=== PATIENT | female | born 1960 | race Caucasian/White ===

== ENCOUNTER 2018-10-07 22:00 | Inpatient (IN) | payer OTHER ==
[~2018-10-07] VITALS: Ht 175.3 cm; Wt 145.1 kg
[2018-10-07] MEDS ORDERED: LIDOCAINE VISC 2% SOLN 15 ML UDC ONE (22:24)
[2018-10-07] MEDS ORDERED: BELLADONNA ALK/PHENOBARBITAL 5 ML UDC ONE (22:25)
[2018-10-07] MEDS ORDERED: DICYCLOMINE HCL 20 MG/2 ML VIAL IM ONE ×2 (22:25→22:30)
[2018-10-07] MEDS ORDERED: DONNATAL/LIDOCAINE/MAALOX 30 ML SUSP PO ONE (22:30)
[2018-10-07] MEDS ORDERED: SODIUM CHLORIDE 0.9% 1000ML 1,000 ML ONE (23:05)
--- NOTE | 2018-10-07 23:46 | Diagnostic Imaging Report ---
EXAM: CT Abdomen and Pelvis WITHOUT contrast INDICATION: Epigastric pain, nausea, and diarrhea ^[id number] ^[id number] COMPARISON: None. TECHNIQUE: Abdomen and pelvis were scanned utilizing a multidetector helical scanner from the lung base to the pubic symphysis without administration of IV contrast. Absence of intravenous contrast decreases sensitivity for detection of focal lesions and vascular pathology. Coronal and sagittal reformations were obtained. Routine protocol was performed. IV CONTRAST: None ORAL CONTRAST: None COMPLICATIONS: None RADIATION DOSE: Total DLP: 828.67 mGy*cm Estimated effective dose: (DLP x 0.015 x size factor) mSv CTDIvol has been reviewed. It is below the limits set by the Radiation Protocol Committee (RPC). FINDINGS: LINES and TUBES: None. LOWER THORAX: Bibasilar mild linear atelectasis/scarring. HEPATOBILIARY: Unenhanced liver is unremarkable. No biliary ductal dilation. GALLBLADDER: Gallstone in gallbladder body and a smaller stone in the gallbladder neck. No wall thickening. SPLEEN: No splenomegaly. PANCREAS: No focal masses or ductal dilatation. ADRENALS: No adrenal nodules KIDNEYS/URETERS: No hydronephrosis. Limited for evaluation of renal parenchyma without intravenous contrast. No stones. GI TRACT: Multiple air and fluid-filled dilated loops of small bowel are seen throughout the abdomen along with collapsed distal ileal loops with transition point in the right abdomen. Appendix is normal. PELVIC ORGANS/BLADDER: Unremarkable. LYMPH NODES: No lymphadenopathy. VESSELS: Unremarkable. PERITONEUM / RETROPERITONEUM: No free air. Small volume dependent pelvic ascites. BONES: Degenerative changes of the visualized spine. SOFT TISSUES: Small fat-containing umbilical hernia. IMPRESSION: 1. Small bowel obstruction with transition point in right abdomen. 2. Cholelithiasis without CT evidence of cholecystitis. Signed by: Dr. Ansno Mena MD on 10/07/2018 11:43 PM
[2018-10-08] VITALS (8 sets, daily range): BP systolic 118–140; BP diastolic 80–92
[2018-10-08] MEDS ORDERED: CEFTRIAXONE SOD 1 GM VIAL IM ONE
[2018-10-08] MEDS ORDERED: MORPHINE SULFATE 2 MG/ML SYR 1ML IV PRN (00:15)
[2018-10-08] MEDS ORDERED: ONDANSETRON HCL INJ 2MG/ML 2ML 2 MG/ML VIAL IV PRN (00:15)
[2018-10-08] MEDS ORDERED: SODIUM CHLORIDE 0.9% 250ML 250 ML ONE (00:40)
--- OUTSIDE RECORDS SUMMARY | 2018-10-08 00:54 | XMS REPORT ---
Author Author [facility] Address Unknown Phone Unavailable Care Team Providers Care Apple Picking Supervisor Name Role Phone PATRICE DOHERTY Unavailable Unavailable Problems This patient has no known problems. Allergies, Adverse Reactions, Alerts This patient has no known allergies or adverse reactions. Medications This patient has no known medications. Results Test Description Test Time Test Comments Text Results Atomic Results Result Comments CT ABD/PEL WO CONTRAST-HOPD 2018-10-07 23:17:00 [place] [id number] Patient Name: MAXIME DODGE MR #: [id number] : 1960 Age/Sex: 58/F Req #: [id number] Adm Physician: Ordered by: PATRICE DOHERTY MD Report #: [id number] Location: [facility] Room/Bed: Procedure: [id number] HOPD/CT ABD/PEL WO CONTRAST-HOPD Exam Date: 10/07/18 Exam Time: 2249 REPORT STATUS: Signed EXAM: CT Abdomen and Pelvis WITHOUT contrast INDICATION: Epigastric pain, nausea, and diarrhea [id number] COMPARISON: None. TECHNIQUE: Abdomen and pelvis were scanned utilizing a multidetector helical scanner from the lung base to the pubic symphysis without administration of IV contrast. Absence of intravenous contrast decreases sensitivity for detection of focal lesions and vascular pathology. Coronal and sagittal reformations were obtained. Routine protocol was performed. IV CONTRAST: None ORAL CONTRAST: None COMPLICATIONS: None RADIATION DOSE: Total DLP: 828.67 mGy*cm Estimated effective dose: (DLP x 0.015 x size factor) mSv CTDIvol has been reviewed. It is below the limits set by the Radiation Protocol Committee (RPC). FINDINGS: LINES and TUBES: None. LOWER THORAX: Bibasilar mild linear atelectasis/scarring. HEPATOBILIARY: Unenhanced liver is unremarkable. No biliary ductal dilation. GALLBLADDER: Gallstone in g allbladder body and a smaller stone in the gallbladder neck. No wall thickening. SPLEEN: No splenomegaly. PANCREAS: No focal masses or ductal dilatation. ADRENALS: No adrenal nodules KIDNEYS/URETERS: No hydronephrosis. Limited for evaluation of renal parenchyma without intravenous contrast. No stones. GI TRACT: Multiple air and fluid-filled dilated loops of small bowel are seen throughout the abdomen along with collapsed distal ileal loops with transition point in the right abdomen. Appendix is normal. PELVIC ORGANS/BLADDER: Unremarkable. LYMPH NODES: No lymphadenopathy. VESSELS: Unremarkable. PERITONEUM / RETROPERITONEUM: No free air. Small volume dependent pelvic ascites. BONES: Degenerative changes of the visualized spine. SOFT TISSUES: Small fat-containing umbilical hernia. IMPRESSION: 1. Small bowel obstruction with transition point in right abdomen. 2. Cholelithiasis without CT evidence of cholecystitis. Signed by: Dr. Anson Mena MD on 10/07/2018 11:43 PM Dictated By: ANSON MENA MD [id number] Transcribed By: BRIAN on 10/07/18 [id number] COPY TO: PATRICE DOHERTY MD
[2018-10-08] MEDS ORDERED: IMIPRAMINE HCL50 MG (01:10)
[2018-10-08] MEDS ORDERED: BENAZEPRIL HCL10 MG PO (01:10)
[2018-10-08] MEDS: SODIUM CHLORIDE 0.9% 1000ML 1,000 ML IV SCH ×2 (02:10→21:18)
--- NOTE | 2018-10-08 06:55 | NUR ---
rounded with fast food shift lead nurse, patient aware of change and in no distress. call sharp within reach and bed in lowest position.
[2018-10-08] MEDS ORDERED: CHLORASEPTIC SPRAY 177 ML BTL MM PRN (13:00)
[2018-10-08] MEDS: METRONIDAZOLE 500MG/NS 100ML 100 ML IV SCH ×2 (13:50→22:00)
[2018-10-08] MEDS: PIPER-TAZ 3.375 GM 50 ML IV SCH (17:15)
--- NOTE | 2018-10-08 19:00 | NUR ---
RECEIVED PT RESTING IN BED WITH NO S/S OF DISTRESS.RESPIRATIONS EVEN/NON LABORED. PT HAS NG TUBE TO RIGHT NARE CONNECTED TO LCWS,GREEN COLORED OUTPUT NOTED IN THE CANISTER.DENIES ANY NEEDS CURRENTLY.BED IN LOW/LOCKED POSITION.INSTRUCTED PT TO CALL FOR ASSISTANCE NEEDED BY PRESSING THE CALL LIGHT.PT VERBALIZED UNDERSTANDING.CALL LIGHT WITHIN EASY REACH.
--- NOTE | 2018-10-08 19:00 | NUR ---
walking rounds made with shift supervisor rn nurse, patient aware of change and in no distress. call sharp within reach, bed in lowest position and NG tube to suction.
[2018-10-08] MEDS: LORAZEPAM INJ 2 MG/ML VIAL IV PRN (21:23)
[2018-10-09] VITALS (7 sets, daily range): BP systolic 129–170; BP diastolic 74–96
[2018-10-09] MEDS: PIPER-TAZ 3.375 GM 50 ML IV SCH ×5 (00:15→23:55)
[2018-10-09] MEDS: METRONIDAZOLE 500MG/NS 100ML 100 ML IV SCH ×3 (05:09→21:19)
[2018-10-09] MEDS: SODIUM CHLORIDE 0.9% 1000ML 1,000 ML IV SCH ×3 (05:46→21:18)
--- NOTE | 2018-10-09 06:21 | NUR ---
PT TAKEN TO RADIOLOGY VIA WHEEL CHAIR IN STABLE CONDITION AT THIS TIME.
--- NOTE | 2018-10-09 06:33 | NUR ---
PT BACK FROM RADIOLOGY IN STABLE CONDITION.
--- NOTE | 2018-10-09 06:50 | NUR ---
REPORT GIVEN TO ONCOMING NURSE.WALKING ROUNDS MADE.PT RESTING IN BED WITH NO S/S OF DISTRESS.
--- NOTE | 2018-10-09 07:57 | Diagnostic Imaging Report ---
Exam: KUB with PA chest. Clinical History: Small bowel obstruction Comparison: CT abdomen and pelvis 10/07/2018 DISCUSSION: Frontal view of the abdomen shows persistent moderately dilated, air-filled loops of small bowel in the central abdomen, with maximal measurement of approximately 5.9 cm. There are no abnormal calcifications.No acute bone abnormality. Enteric tube has its distal tip projecting in the region of the distal antrum/pylorus. No pneumoperitoneum. Lungs are grossly clear. No consolidation or effusion. Stable eventration of the right hemidiaphragm. Cardiomediastinal silhouette is normal. Pulmonary vasculature is normal. No acute bony abnormalities. IMPRESSION: 1. Persistent moderately dilated air-filled loops of small bowel in the central abdomen, consistent with known small bowel obstruction. The staff physician below has personally reviewed this exam on the date of dictation. Signed by: Dr. Poncho Rodriguez M.D. on 10/09/2018 7:54 AM
[2018-10-09 08:06] LABS: BASOPHILS % 0.3 % (0.0-1.0); EOSINOPHILS # (AUTO) 0.1 (0.0-0.4); EOSINOPHILS % 2.3 % (0.0-6.0); HEMATOCRIT 42.5 % (34.2-44.1); HEMOGLOBIN 13.8 g/dL (12.0-16.0); LYMPHOCYTES # (AUTO) 1.1 (1.0-3.2); LYMPHOCYTES % 18.5 % (18.0-39.1); MEAN CORPUSCULAR HEMOGLOBIN 30.1 pg (28-32); MEAN CORPUSCULAR HGB CONC 32.5 g/dL (31-35); MEAN CORPUSCULAR VOLUME 92.6 fL (81-99); MONOCYTES # (AUTO) 0.8 (0.2-0.8); MONOCYTES % 13.7 % (4.4-11.3); NEUTROPHILS # (AUTO) 3.9 (2.1-6.9); NEUTROPHILS % 64.7 % (38.7-80.0); PLATELET COUNT 198 x10e3/uL (140-360); RED BLOOD COUNT 4.59 x10e6/uL (3.6-5.1); RED CELL DISTRIBUTION WIDTH 12.6 % (11.7-14.4)
[2018-10-09 08:25] LABS: ALBUMIN 2.8 g/dL (3.5-5.0); ALBUMIN/GLOBULIN RATIO 0.8 (0.8-2.0); ANION GAP 13.9 mmol/L (8-16); CALCIUM 8.8 mg/dL (8.4-10.2); CREATININE, SERUM 0.98 mg/dL (0.57-1.11); POTASSIUM 3.9 mmol/L (3.5-5.1)
--- NOTE | 2018-10-09 18:51 | NUR ---
walking rounds made with third shift lieutenant nurse, patient aware of change and in no distress at this time. call sharp within reach and bed in lowest position.
[2018-10-09] MEDS: BISACODYL 10 MG SUPP PR SCH (21:19)
--- NOTE | 2018-10-09 23:00 | NUR ---
Patient had a small quantity of bowel movement.
[2018-10-09] MEDS: LORAZEPAM INJ 2 MG/ML VIAL IV PRN (23:10)
[2018-10-10] VITALS (8 sets, daily range): BP systolic 127–150; BP diastolic 70–89
[2018-10-10] MEDS: SODIUM CHLORIDE 0.9% 1000ML 1,000 ML IV SCH ×2 (05:18→16:05)
[2018-10-10] MEDS: METRONIDAZOLE 500MG/NS 100ML 100 ML IV SCH ×3 (05:22→21:29)
[2018-10-10 05:44] LABS: BASOPHILS % 0.4 % (0.0-1.0); EOSINOPHILS # (AUTO) 0.1 (0.0-0.4); EOSINOPHILS % 1.6 % (0.0-6.0); HEMATOCRIT 41.5 % (34.2-44.1); HEMOGLOBIN 13.5 g/dL (12.0-16.0); LYMPHOCYTES % 14.2 % (18.0-39.1); MEAN CORPUSCULAR HEMOGLOBIN 30.1 pg (28-32); MEAN CORPUSCULAR HGB CONC 32.5 g/dL (31-35); MEAN CORPUSCULAR VOLUME 92.4 fL (81-99); MONOCYTES # (AUTO) 0.7 (0.2-0.8); MONOCYTES % 9.7 % (4.4-11.3); NEUTROPHILS # (AUTO) 5.1 (2.1-6.9); NEUTROPHILS % 73.1 % (38.7-80.0); PLATELET COUNT 204 x10e3/uL (140-360); RED BLOOD COUNT 4.49 x10e6/uL (3.6-5.1); RED CELL DISTRIBUTION WIDTH 12.5 % (11.7-14.4)
[2018-10-10] MEDS: PIPER-TAZ 3.375 GM 50 ML IV SCH ×4 (06:00→23:44)
[2018-10-10 06:05] LABS: ALANINE AMINOTRANSFERASE 32 IU/L (0-55); ALBUMIN 2.7 g/dL (3.5-5.0); ALBUMIN/GLOBULIN RATIO 0.8 (0.8-2.0); ALKALINE PHOSPHATASE 53 IU/L (40-150); ANION GAP 16.2 mmol/L (8-16); BLOOD UREA NITROGEN 10 mg/dL (7-26); BUN/CREATININE RATIO 12 (6-25); CALCIUM 8.8 mg/dL (8.4-10.2); CARBON DIOXIDE 27 mmol/L (22-29); CHLORIDE 105 mmol/L (98-107); CREATININE, SERUM 0.81 mg/dL (0.57-1.11); EST GLOMERULAR FILTRATION RATE > 60 ML/MIN (60-); GLUCOSE 93 mg/dL (74-118); POTASSIUM 4.2 mmol/L (3.5-5.1); SODIUM 144 mmol/L (136-145)
--- NOTE | 2018-10-10 06:10 | NUR ---
Patient went to radiology department via wheelchair.
--- NOTE | 2018-10-10 06:21 | Diagnostic Imaging Report ---
EXAM: Abdomen 4 radiographs INDICATION: ^SBO ^[id number] ^[id number] COMPARISON: Abdominal x-ray dated 10/09/2018 FINDINGS: Stable enteric tube with tip overlying gastric antrum. Persistent obstructive bowel gas pattern. No rectal air visualized. No definite evidence of pneumoperitoneum. No acute osseous abnormality. Lungs are unremarkable. Mildly elevated right hemidiaphragm. IMPRESSION: 1. No significant interval change from prior exam. Signed by: Dr. Anson Mena MD on 10/10/2018 6:17 AM
--- NOTE | 2018-10-10 06:24 | NUR ---
patient is back from radiology
--- NOTE | 2018-10-10 07:00 | NUR ---
bedside shift report received from material handler 2nd shift rn, pt in stable condition, ivf infusing to r hand 22g no ss of infiltration noted, denies pain at this time, updated on poc voiced understanding, call light in reach will continue to monitor
[2018-10-10] MEDS: BISACODYL 10 MG SUPP PR SCH (08:04)
--- NOTE | 2018-10-10 10:55 | NUR ---
Received report from García Redmond RN of patient's status. Patient resting in bed. AAOX4 to time, person, place, situation. Respirations even and unlabored. NG tube to right nare on continuous suction draining green drainage. Denies pain. Instructed patient to use call light for assistance. Voiced understanding. Will continue to monitor.
--- NOTE | 2018-10-10 14:29 | NUR ---
NG tube clamped as ordered
--- NOTE | 2018-10-10 18:21 | NUR ---
NG tube discontinued as ordered. Reminded patient to remain NPO per doctor's orders. Voiced understanding.
--- NOTE | 2018-10-10 18:45 | NUR ---
Received bedside report from day shift RN. The patient is sitting up on the bed and not in distress. Call light within reach, bed height low, wheels lock and side rails up x2.
--- NOTE | 2018-10-10 19:10 | NUR ---
Report given to oncoming nurse of patient's status. AAOX4 to time, person, place, situation. Respirations even and unlabored. Denies nausea at this time. side rails upx2, call light within reach.
[2018-10-10] MEDS: LORAZEPAM INJ 2 MG/ML VIAL IV PRN (21:29)
[2018-10-11] VITALS (8 sets, daily range): BP systolic 120–150; BP diastolic 66–99
[2018-10-11] MEDS: SODIUM CHLORIDE 0.9% 1000ML 1,000 ML IV SCH ×2 (01:43→11:09)
[2018-10-11] MEDS: PIPER-TAZ 3.375 GM 50 ML IV SCH ×3 (04:47→16:29)
[2018-10-11] MEDS: METRONIDAZOLE 500MG/NS 100ML 100 ML IV SCH ×3 (04:47→22:38)
--- NOTE | 2018-10-11 19:10 | NUR ---
Report given to oncoming nurse of patient's status. Resting in bed. Daughter at bedside. No s/s of acute distress noted. Side rails upx2, call light within reach. Addendum: 10/11/18 at 1941 by AMARA ELLIS RN error
--- NOTE | 2018-10-11 19:20 | NUR ---
Report given to oncoming nurse of patient's status. Resting in bed. No s/s of acute distress noted. Side rails upx2, call light within reach.
--- NOTE | 2018-10-11 20:31 | NUR ---
PATIENT CONDITION STABLE WITHOUT ACUTE DISTRESS, SHE DENIES ABDOMINAL PAIN. BLOOD PRESSURE 150/99, CALL AND SPOKE REGARDING THE PATIENT ELEVATED BLOOD PRESSURE, MD ORDER TO RESUME THE PATIENT'S HOME MEDICATION. WILL ADMINISTER THE MEDICATIONS ONCE THE ORDERS HAVE BEEN VERIFIED BY THE PHARMACIST.
[2018-10-11] MEDS ORDERED: IMIPRAMINE HCL 50 MG TAB PO SCH (21:00)
[2018-10-11] MEDS: BENAZEPRIL HCL 10 MG TAB PO SCH (21:19)
[2018-10-12] VITALS: BP 139/78
[2018-10-12] MEDS: SODIUM CHLORIDE 0.9% 1000ML 1,000 ML IV SCH ×2 (00:20→13:07)
[2018-10-12] MEDS: PIPER-TAZ 3.375 GM 50 ML IV SCH ×3 (00:22→13:10)
--- NOTE | 2018-10-12 00:26 | NUR ---
PATIENT RESTING IN BED, NO ACUTE DISTRESS OBSERVED, SHE DENIES ABDOMINAL PAIN. CALL LIGHT WITHIN EASY REACH, SHE'S INSTRUCTED TO CALL FOR ASSISTANCE NEEDED.
--- NOTE | 2018-10-12 03:00 | NUR ---
WALKING ROUNDS MADE; NO DISTRESS OBSERVED, PATIENT DENIES ABDOMINAL PAIN. IV SITE NOTED LEAKING, IV REMOVED WITH TIP INTACT. ATTEMPTED TO RESTART ANOTHER IV BUT WAS UNSUCCESSFUL. CHARGE NURSE NOTIFY TO PLEASE TRY TO START ANOTHER IV WHEN SHE GET THE CHANCE.
[2018-10-12 04:00] VITALS: BP 139/98
[2018-10-12] MEDS: METRONIDAZOLE 500MG/NS 100ML 100 ML IV SCH ×2 (06:45→13:56)
[2018-10-12 07:44] VITALS: BP 139/98
[2018-10-12] MEDS: BENAZEPRIL HCL 10 MG TAB PO SCH (08:03)
[2018-10-12 08:09] VITALS: BP 161/91
[2018-10-12 12:18] VITALS: BP 147/94
[2018-10-12 15:53] VITALS: BP 167/94
--- NOTE | 2018-10-12 19:10 | NUR ---
Report taken from morning rn.walking rounds done.waiting for ride to go home.
--- NOTE | 2018-10-12 19:38 | NUR ---
ASSESSMENT DONE.V/S STABLE.PROVIDED WITH DISCHARGE SUMMORY AND EDUCATION INFORMED.PROVIDED CONTACTS FOR FOLLOW UP APPOINTMENTS AND ORDERS IN PLACE FOR DISCHARGE.PT OFF THE UNIT VIA WHEEL CHAIR FOR DISCHARGE.
== END 2018-10-12 19:32 | disposition home or self-care (01) | DRG 389 ==
LOC: FSED 22:00 → ERHOLD 10-08 00:06 → MED/SURG 10-08 01:26
PROVIDERS: ADMIT Surgery; ATTEND Surgery
PROC: 0D9670Z Drainage of Stomach with Drainage Device, Via Natural or Artificial Opening (ICD-10-PCS; principal; 2018-10-08)
DX: K56.600 Partial intestinal obstruction, unspecified as to cause (principal); Z68.42 Body mass index [BMI] 45.0-49.9, adult; E66.01 Morbid (severe) obesity due to excess calories; K52.9 Noninfective gastroenteritis and colitis, unspecified; F41.9 Anxiety disorder, unspecified
CPT/HCPCS: 36415; 74022; 74176; 80053; 81003; 85025; 96367; 99284; J0500; J0696; J2060; J2405; J2543; J7030; J7050